=== PATIENT | male | born 1950 | race African-American/Black ===

== ENCOUNTER 2017-06-27 13:12 | Emergency (ER) | payer OTHER ==
[2017-06-27] MEDS ORDERED: IV NORMAL SALINE 1000ML BAG 1,000 ML IV SCH (14:00)
--- NOTE | 2017-06-27 14:11 | PHYS DOC ---
Past Medical History Past Medical History: Cancer, Diabetes-Type II, Sciatica Additional Past Medical Histor: Foot ulcer, Chronic pain syndrome, PVD, Osteomyelitis, Panuveitis Additional Past Surgical Histo: R AKA Alcohol Use: None Drug Use: None Adult General Chief Complaint Chief Complaint: HYPOTENSION HPI HPI Patient is a 67 year old male who presents with lightheadedness and generalized weakness. The patient was brought to the emergency department by EMS from his detention after patient was found to have abnormal lab work. Patient states that he is feeling dizziness and generalized fatigue but denies any pain at this time. The patient recently underwent an [id number] amputation due to critical limb ischemia and osteomyelitis and has been in detention care since discharge from the hospital. The patient had a noted drop in his hemoglobin levels from his previous labs. Patient also has been noted to have hypotension and increasing tachycardia over the past few days. Staff was concerned the patient may have a source of bleeding and have the patient sent to the emergency department for evaluation. Patient denies any black stools or any noted blood in his stool. Patient also denies any vomiting of blood. Review of Systems Review of Systems Constitutional: Lightheadedness, denies fever or chills [] Eyes: Denies change in visual acuity, redness, or eye pain [] HENT: Denies nasal congestion or sore throat [] Respiratory: Denies cough or shortness of breath [] Cardiovascular: Denies chest pain or edema [] GI: Denies abdominal pain, nausea, vomiting, bloody stools or diarrhea [] : Denies dysuria or hematuria [] Musculoskeletal: Denies back pain or joint pain [] Integument: Denies rash or skin lesions [] Neurologic: Denies headache, focal weakness or sensory changes [] Current Medications Current Medications Current Medications Medications (Trade) Dose Ordered Sig/Carey Start Time Stop Time Status Last Admin Dose Admin Piperacillin Sod/ Tazobactam Sod 3.375 gm/Sodium Chloride 50 ml @ 100 mls/hr 1X ONCE 06/27/17 17:30 06/27/17 17:59 UNV Piperacillin Sod/ Tazobactam Sod 4.5 gm/Sodium Chloride 100 ml @ 200 mls/hr 1X ONCE 06/27/17 17:30 06/27/17 17:59 Sodium Chloride 1,000 ml @ 100 mls/hr 1X ONCE 06/27/17 19:00 06/28/17 04:59 Vancomycin HCl 1.75 gm/Sodium Chloride 500 ml @ 250 mls/hr 1X ONCE 06/27/17 18:00 06/27/17 19:59 Vancomycin HCl 1 gm/Sodium Chloride 250 ml @ 166.667 mls/hr 1X ONCE 06/27/17 17:30 06/27/17 18:59 UNV Allergies Allergies Allergies Coded Allergies Type Severity Reaction Last Updated Verified Tetracyclines Allergy Intermediate 06/27/17 Yes Physical Exam Physical Exam Constitutional: Alert, afebrile, no acute distress. [] HENT: Normocephalic, atraumatic, bilateral external ears normal, oropharynx moist, pale mucous membranes, no oral exudates, nose normal. [] Eyes: PERRLA, EOMI, conjunctiva normal, no discharge. [] Neck: Normal range of motion, no tenderness, supple, no stridor. [] Cardiovascular: Tachycardia, regular rhythm, no murmur [] Lungs & Thorax: Bilateral breath sounds clear to auscultation [] Abdomen: Bowel sounds normal, soft, no tenderness, no masses, no pulsatile masses. [] Skin: Warm, dry, no erythema, no rash. [] Back: No tenderness, no CVA tenderness. [] Extremities: Right [id number]-[id number] amputation with no active bleeding, surgical seun remain intact, no cyanosis, no clubbing, ROM intact, no edema. [] Neurologic: Alert and oriented X 3, normal motor function, normal sensory function, no focal deficits noted. [] Current Patient Data Vital Signs Vital Signs Date Time Temp Pulse Resp B/P (MAP) Pulse Ox O2 Delivery O2 Flow Rate FiO2 06/27/17 16:30 90 8 98 Room Air 06/27/17 13:26 99.1 99.1 Lab Values Laboratory Tests Test 06/27/17 14:30 06/27/17 14:50 06/27/17 16:01 White Blood Count 19.1 x10^3/uL (4.0-11.0) H Red Blood Count 2.68 x10^6/uL (4.30-5.70) L Hemoglobin 8.0 g/dL (13.0-17.5) L Hematocrit 24.7 % (39.0-53.0) L Mean Corpuscular Volume 92 fL (79-100) Mean Corpuscular Hemoglobin 30 pg (25-35) Mean Corpuscular Hemoglobin Concent 32 g/dL (31-37) Red Cell Distribution Width 16.7 % (11.5-14.5) H Platelet Count 309 x10^3/uL (140-400) Neutrophils (%) (Auto) 86 % (31-73) H Lymphocytes (%) (Auto) 8 % (24-48) L Monocytes (%) (Auto) 6 % (0-9) Eosinophils (%) (Auto) 0 % (0-3) Basophils (%) (Auto) 0 % (0-3) Neutrophils # (Auto) 16.5 x10^3uL (1.8-7.7) H Lymphocytes # (Auto) 1.5 x10^3/uL (1.0-4.8) Monocytes # (Auto) 1.1 x10^3/uL (0.0-1.1) Eosinophils # (Auto) 0.0 x10^3/uL (0.0-0.7) Basophils # (Auto) 0.0 x10^3/uL (0.0-0.2) Segmented Neutrophils % 65 % (35-66) Band Neutrophils % 22 % (0-9) H Lymphocytes % 7 % (24-48) L Monocytes % 5 % (0-10) Metamyelocytes % 1 % (0-0) H Platelet Estimate Adequate (ADEQUATE) Polychromasia Slight Hypochromasia Slight Basophilic Stippling Present Anisocytosis Slight Prothrombin Time 15.7 SEC (11.7-14.0) H Prothrombin Time INR 1.3 (0.8-1.1) H PTT 38 SEC (24-38) Sodium Level 137 mmol/L (136-145) Potassium Level 3.3 mmol/L (3.5-5.1) L Chloride Level 104 mmol/L (98-107) Carbon Dioxide Level 24 mmol/L (21-32) Anion Gap 9 (6-14) Blood Urea Nitrogen 7 mg/dL (8-26) L Creatinine 0.6 mg/dL (0.7-1.3) L Estimated GFR (Cockcroft-Gault) 162.6 BUN/Creatinine Ratio 12 (6-20) Glucose Level 116 mg/dL (70-99) H Calcium Level 7.5 mg/dL (8.5-10.1) L Total Bilirubin 0.3 mg/dL (0.2-1.0) Aspartate Amino Transferase (AST) 19 U/L (15-37) Alanine Aminotransferase (ALT) 13 U/L (16-63) L Alkaline Phosphatase 75 U/L (46-116) Total Protein 5.9 g/dL (6.4-8.2) L Albumin 1.4 g/dL (3.4-5.0) L Albumin/Globulin Ratio 0.3 (1.0-1.7) L Stool Occult Blood Negative (NEG) Urine Collection Type Unknown Urine Color Izabel Urine Clarity Clear Urine pH 5.5 Urine Specific [place] 1.015 Urine Protein Negative mg/dL (NEG-TRACE) Urine Glucose (UA) Negative mg/dL (NEG) Urine Ketones (Stick) Trace mg/dL (NEG) Urine Blood Negative (NEG) Urine Nitrite Negative (NEG) Urine Bilirubin Negative (NEG) Urine Urobilinogen Dipstick 0.2 mg/dL (0.2 mg/dL) Urine Leukocyte Esterase Small (NEG) Urine RBC 0 /HPF (0-2) Urine WBC 0 /HPF (0-4) Urine Bacteria 0 /HPF (0-FEW) Urine Mucus Mod /LPF Laboratory Tests 06/27/17 14:30 Laboratory Tests 06/27/17 14:30 EKG EKG Not performed [] Radiology/Procedures Radiology/Procedures Not performed [] Course & Med Decision Making Course & Med Decision Making Pertinent Labs and Imaging studies reviewed. (See chart for details) The patient was started on IV fluids in the emergency department due to hypotension and tachycardia. The patient's red blood cell count was found to be 8.0. The patient was typed and screened for packed red blood cells with orders for 2 units to be transfused to the patient. The patient was initially admitted to Dr. Edmondson who saw the patient in the emergency department. After her evaluation, she felt that it would be best if the patient were transferred to [facility] where he has had all of his medical care up to this point. She contacted physicians at [facility] and was able to obtain an accepting physician. The patient will be transferred by ground EMS to [facility] for further care. Dragon Disclaimer Dragon Disclaimer This electronic medical record was generated, in whole or in part, using a voice recognition dictation system. Departure Departure Impression: Primary Impression: Hemodynamic instability Additional Impressions: Anemia Leukocytosis Hypocalcemia Severe protein-calorie malnutrition Disposition: 02 TRANSFER SHT-TRM HOSP Condition: GUARDED Problem Qualifiers Additional Impressions: Anemia Anemia type: unspecified type Qualified Codes: D64.9 - Anemia, unspecified Leukocytosis Leukocytosis type: unspecified Qualified Codes: D72.829 - Elevated white blood cell count, unspecified PHILIPP BELCHER MD Jun 27, 2017 14:11
--- NOTE | 2017-06-27 14:42 | EKG ---
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
[2017-06-27 14:47] LABS: BASO % 0 % (0-3); EOS % 0 % (0-3); HEMATOCRIT 24.7 % (39.0-53.0); LYMPH # 1.5 x10^3/uL (1.0-4.8); LYMPH % 8 % (24-48); MEAN CORPUSCULAR HEMOGLOBIN 30 pg (25-35); MEAN CORPUSCULAR HGB CONC 32 g/dL (31-37); MEAN CORPUSCULAR VOLUME 92 fL (79-100); MONO % 6 % (0-9); NEUT % 86 % (31-73); PLATELET COUNT 309 x10^3/uL (140-400); RED BLOOD COUNT 2.68 x10^6/uL (4.30-5.70); RED CELL DISTRIBUTION WIDTH 16.7 % (11.5-14.5); WHITE BLOOD COUNT 19.1 x10^3/uL (4.0-11.0)
[2017-06-27 15:00] LABS: INR 1.3 (0.8-1.1); PROTHROMBIN TIME PATIENT 15.7 SEC (11.7-14.0)
[2017-06-27 15:05] LABS: CALCIUM 7.5 mg/dL (8.5-10.1); CREATININE 0.6 mg/dL (0.7-1.3); GFR 162.6; POTASSIUM 3.3 mmol/L (3.5-5.1)
[2017-06-27 15:11] LABS: ALBUMIN 1.4 g/dL (3.4-5.0); ALBUMIN/GLOBULIN RATIO 0.3 (1.0-1.7); TOTAL BILIRUBIN 0.3 mg/dL (0.2-1.0); TOTAL PROTEIN 5.9 g/dL (6.4-8.2)
[2017-06-27 15:26] LABS: NEG OBC FOB NEG; POS OBC FOB POS
[2017-06-27 16:12] LABS: BILIRUBIN,URINE NEGATIVE (NEG); GLUCOSE,URINE NEGATIVE (NEG); NITRITE,URINE NEGATIVE (NEG); PH,URINE 5.5; PROTEIN,URINE NEGATIVE (NEG-TRACE); UROBILINOGEN,URINE 0.2 mg/dL (0.2 mg/dL)
[2017-06-27 16:26] LABS: BACTERIA,URINE 0 /HPF (0-FEW); RBC,URINE 0 /HPF (0-2); WBC,URINE 0 /HPF (0-4)
[2017-06-27 16:50] LABS: ANISOCYTOSIS SLIGHT; HYPOCHROMIA SLIGHT; PLT ESTIMATE ADEQUATE (ADEQUATE); POLYCHROMASIA SLIGHT
--- NOTE | 2017-06-27 16:55 | PDOC ---
Provider Note Provider Note Seen at ER 16 Dw ER MD, [employer] Bishop and business performance specialist NIKITA WOuld recommend transfer to for continuity of care, was just dcd there last week s/p Rt BKA NOW, weak, anemia, poor PO hgb 8.. baseline? Lowish BP, could be his baseline? HX pancreatic CA, 6 mos chemo, 1 mo radiation, Dr Mac? onco HX EGD and c scope yrs ago for unrecalled reason, also done at Dtr also mentions prev on hospice Awaiting call back from transfer PLan of care dw everybody involved PT seen and examined Time to date 45 mins so far... pending official transfer Dictated: # [id number] KAYCEE BARKLEY MD Jun 27, 2017 16:55
[2017-06-27] MEDS ORDERED: VANCOMYCIN 1 GM in IV NORMAL SALINE 250ML 250 ML IV ONE (17:30)
[2017-06-27] MEDS ORDERED: IV NORMAL SALINE 1000ML BAG 1,000 ML IV ONE ×2 (17:30→19:00)
[2017-06-27] MEDS ORDERED: PIPERACILLIN/TAZOBACTAM 4.5 GM in IV NORMAL SALINE 100ML 100 ML IV ONE (17:30)
[2017-06-27] MEDS ORDERED: PIPERACILLIN/TAZOBACTAM 3.375 GM in IV NORMAL SALINE 50ML 50 ML IV ONE (17:30)
[2017-06-27] MEDS ORDERED: VANCOMYCIN 1.75 GM in IV NORMAL SALINE 500ML BAG 500 ML IV ONE (18:00)
[2017-06-27 20:18] VITALS: BP 78/51
--- NOTE | 2017-06-28 02:03 | CONS ---
DATE OF CONSULTATION: 06/27/2017 The patient seen at the Emergency Room. Room # 16. CHIEF COMPLAINT: Sent by half-way staff because of generalized weakness and inability to wake to eat meal. HISTORY OF PRESENT ILLNESS: The patient is a 67-year-old male, limited history, limited Danish, daughter is at bedside, but also has very limited knowledge of her father's medical condition. The patient has never been here at [facility]. I am asked to admit for anemia workup. Apparently, at [facility], which is [facility], has been about a week, recently discharged from after having a right BKA for what sounds like had ischemic limb or osteomyelitis. He does have a history of diabetes on insulin, but claims blood sugars are otherwise controlled. Blood sugar is here otherwise not too bad. Apparently, there was mention of hemoglobin with 11. It came down to 7.9, now at the emergency room which is 8.0. We do have a white count of 19.1 with blood culture drawn. UA is pending. Temperature is 99.1. Chest x-ray not done as there are no chest symptoms. Blood pressure was on the low side, 86/57 at [facility], here 90/60, heart rate 90 sinus. As per daughter, he usually runs low in terms of blood pressure. The patient weighs around may be 110 pounds, may be this could be his baseline; we do not know. Again, the patient recently was discharged at for a known period of time, had an amputation done there by Dr. Otero. Then, daughter mentioned to me and also based on review of new records sent to us, he does have history of pancreatic cancer, status post chemo and radiation; last dose was October, it sounds like he had six month cycle of chemo radiation, I am ensure? and may be a month of radiation? Again, not a best historian, but mentions Dr. Nelson? as his oncologist also at . I did recommend to emergency room to transfer to for continuity of care. Obviously, all his records are there. We do not know if his hemoglobin of 8 is actually baseline for him and for a workup of this anemia and generalized weakness and not being able to wake up to eat. The patient is weak, but awakes, but then prefer to follow back to sleep. The rest of labs we have here are just the hemoglobin of 8 and WBC of 19 with prominence of neutrophils in the 80s, otherwise no imaging available and UA is again pending. The seun on the right stump look good. There is no tense of fluid buildup, no imaging was also ordered there. There is also mention of secondary malignancy of the bone, neoplasm of the bone? as per [facility] records. Again, I really feels strongly that, given this multiple medical issues and all of his records in , to avoid working from scratch, that patient be transferred therefore continuity of care and I did speak with triage nurse that I am awaiting call back, but sounds like this might be appropriate things to be done for this gentleman. EKG and colonoscopy done years ago for unknown reason. The daughter cannot tell me and I did well volunteer the information of anemia. She could not verify this as a reason for the EGD and colonoscopy. PAST MEDICAL HISTORY: 1. Pancreatic cancer; 6 months of chemo, one month of radiation, secondary malignancy of the bone. 2. Recent right BKA for either osteomyelitis or ischemic limb. 3. Diabetes type 2 on insulin. 4. Encephalopathy. 5. History of STEVE. 6. History of sepsis. PAST SURGICAL HISTORY: Recent right BKA, by Dr. Otero. ALLERGIES: None on file. REVIEW OF SYSTEMS: Limited. The patient has minimal cooperation. He has some element of dementia. FAMILY HISTORY: Unknown, but mentioned to me hypertension in the family. SOCIAL HISTORY: No smoking, no alcohol, no street drug. Lives in [facility], for about one week now. PHYSICIAL EXAMINATION: GENERAL: He is awake, prefers to sleep, looks weak, but not in acute respiratory distress. HEENT: Pale palpebral conjunctivae, anicteric sclerae, pupils equally reactive to light. No JVD. LUNGS: Decreased breath sounds, but no rales, rhonchi or wheezing. CARDIOVASCULAR: Normal regular rate and rhythm, sinus tachycardia in the 90s. No heaves, thrills or lifts, pale nail beds. ABDOMEN: Soft, nontender, normoactive bowel sounds. GENITALIA: Appropriate for age. EXTREMITIES: Positive BKA with seun on the right stump leg. Left lower leg appears okay. NEUROLOGICAL AND PSYCHIATRIC: Appears essentially within normal limits. No focal neuro deficits. SKIN: Minimal subcutaneous tissue, normal skin turgor, may be a little bit of the dehydration side as tenting of skin may be greater than 2 seconds. ASSESSMENT AND PLAN: 1. Anemia, unsure if hemoglobin of 8 is baseline, could be acute on chronic. 2. Recent right below-knee amputation for either osteomyelitis or ischemic limb. 3. Hypertension, could be is baseline, but would recommend cortisol levels if that has not been done in . 4. Pancreatic cancer, status post 6 months chemotherapy, one month radiation, was previously on Hospice? Doctor mentions this again, [facility] records would be a benefit. 5. Moderate protein calorie malnutrition. 6. ____ on admission, no sepsis. Yet WBC is 19, sinus tachycardic 90s, we do have a source yet. did recommend getting blood cultures, but I held off since the patient might be transferred to . 5. Hypokalemia, 3.3. PLAN OF CARE: I really do recommend transferring to , as all these records are there, for continuity of care, so that we do not start from scratch his baseline again. I did voice up the concern to the family, ER and TELEPHONE BETTING CLERKIRSA Arreguin. They all agreed. I am waiting for to call me back for acceptance. I held off under ____ hemoglobin of 8. The patient got IV fluids for the hypertension. Blood pressure seems to be better. The patient is not crashing, he is fine, medically stable for transfer. Otherwise, again as per reasons above mentioned in the history and physical, I would transfer this patient. Cumulative time so far as to date is 60 minutes. The patient seen and examined in the room ER 16. KAYCEE BARKLEY MD DR: /nts JOB#: [id number] / [id number]
== END 2017-06-27 20:37 | disposition short-term general hospital (02) ==
LOC: ER 13:12
DX: M23.51 Chronic instability of knee, right knee (principal); D72.829 Elevated white blood cell count, unspecified; E83.51 Hypocalcemia; E43 Unspecified severe protein-calorie malnutrition; D64.9 Anemia, unspecified; E11.621 Type 2 diabetes mellitus with foot ulcer; L97.509 Non-pressure chronic ulcer of other part of unspecified foot with unspecified severity; E11.69 Type 2 diabetes mellitus with other specified complication; M86.9 Osteomyelitis, unspecified; I73.9 Peripheral vascular disease, unspecified; Z89.611 Acquired absence of right leg above knee; G89.4 Chronic pain syndrome; Z88.8 Allergy status to other drugs, medicaments and biological substances; Z79.4 Long term (current) use of insulin
CPT/HCPCS: 36415; 80053; 81001; 82274; 85007; 85027; 85610; 85730; 86850; 86900; 86901; 86920; 87040; 87086; 93005; 96361; 96365; 96366; 96368; 99285; J2543; J3370; J7030; J7040